=== PATIENT | female | born 1955 | race Caucasian/White ===

== ENCOUNTER 2017-06-20 08:12 | Outpatient (CLI) | payer OTHER | END 2017-06-20 08:13 | disposition home or self-care (01) | LOC: DI 08:12 | DX: I10 Essential (primary) hypertension (principal); Z82.49 Family history of ischemic heart disease and other diseases of the circulatory system | CPT/HCPCS: 93306 ==

== ENCOUNTER 2018-07-31 16:44 | Outpatient (CLI) | payer MEDICARE, OTHER ==
--- NOTE | 2018-08-01 13:10 | MRI Report ---
Reason: PAIN IN LEFT KNEE Procedure Date: 07/31/2018 Accession Number: [id number] / [id number] Procedure: MRI - Knee LT W/O CPT Code: FULL RESULT: EXAM: LEFT KNEE MRI WITHOUT CONTRAST EXAM DATE: 07/31/2018 05:34 PM. CLINICAL HISTORY: Pain in left knee. COMPARISON: Complete 06/20/2017 8:21 AM. TECHNIQUE: Multiplanar, multisequence T1-weighted and fluid-sensitive sequences of the knee without contrast. Other: None. FINDINGS: Bones: Proximal posterior tibia, 1.6 cm intraosseous ganglion cyst. Marrow edema at the posterior aspect of the medial tibial plateau. Mild edema at the anterior aspect of the lateral tibial plateau. Mild edema at the anterior medial and proximal tibia metaphysis. There are diffuse large femoral condyle and tibial plateau osteophytes. Large intercondylar osteophytes. Large lateral patella osteophyte, remotely fractured. Focal reactive marrow edema and cystic degenerative changes at the lateral patellar facet. Same level subcortical marrow edema or cystic changes at the anterior aspect of the lateral femoral condyle. Large fractured spur at the superior patella. Articular Cartilage: Severe osteoarthritis and severe chondromalacia at the lateral patellofemoral compartment with lateral patella subluxation. Severe chondromalacia at the medial tibiofemoral compartment. Medial Meniscus: Diminutive posterior horn medial meniscus. Complex tear at the medial meniscus body. Lateral Meniscus: The lateral meniscus is negative for a tear. Cruciate Ligaments: The anterior and posterior cruciate ligaments are intact. Collateral Ligaments: The medial collateral and lateral collateral ligamentous structures are intact. Tendons: The quadriceps, patellar, semimembranosus, and popliteus tendons are unremarkable. Musculature: No edema or fatty atrophy. Other: Small fluid collection in the patellar recesses. No popliteal cyst. Posterior joint space 9 mm and 5 mm osseous bodies (image 17 series 501). The medial and lateral retinacula are intact. Mild subcutaneous edema superficial to the patella. Small cyst, 9 mm, at the posterior aspect of proximal tibia. IMPRESSION: 1. Severe lateral patellofemoral compartment osteoarthritis with complete erosion of the articular cartilage, large osteophytes, some remotely fractured, and lateral patellar subluxation. 2. There is severe medial tibiofemoral compartment osteoarthritis and chondromalacia. Kellgren-Mo grade 4. 3. Diminutive posterior horn medial meniscus and the complex tear at the medial meniscus body. 4. Posterior joint space osseous bodies. RADIA MUSCULOSKELETAL RADIOLOGY SECTION
== END 2018-07-31 16:45 | disposition home or self-care (01) ==
LOC: DI 16:44
PROVIDERS: ATTEND Internal Medicine
DX: M17.12 Unilateral primary osteoarthritis, left knee (principal); S83.012A Lateral subluxation of left patella, initial encounter; M94.262 Chondromalacia, left knee; S83.232A Complex tear of medial meniscus, current injury, left knee, initial encounter; M25.762 Osteophyte, left knee

== ENCOUNTER 2019-03-13 08:00 | Outpatient (CLI) | payer MEDICARE, OTHER | END 2019-03-13 23:59 | disposition home or self-care (01) | LOC: LAB.F 08:00 | DX: Z51.81 Encounter for therapeutic drug level monitoring (principal); Z79.01 Long term (current) use of anticoagulants | CPT/HCPCS: 85610 ==

== ENCOUNTER 2019-03-16 11:51 | Outpatient (CLI) | payer MEDICARE, OTHER | END 2019-03-16 11:52 | disposition home or self-care (01) | LOC: LAB.F 11:51 | PROVIDERS: ATTEND Pharmacist Pharmacist Clinician (PhC)/ Clinical Pharmacy Specialist | DX: Z51.81 Encounter for therapeutic drug level monitoring (principal); Z79.01 Long term (current) use of anticoagulants | CPT/HCPCS: 85610 ==

== ENCOUNTER 2019-06-15 10:54 | Outpatient (CLI) | payer MEDICARE, OTHER | END 2019-06-15 10:55 | disposition home or self-care (01) | LOC: LAB 10:54 | PROVIDERS: ATTEND Pharmacist Pharmacist Clinician (PhC)/ Clinical Pharmacy Specialist | DX: Z51.81 Encounter for therapeutic drug level monitoring (principal); Z79.01 Long term (current) use of anticoagulants; Z98.890 Other specified postprocedural states | CPT/HCPCS: 85610 ==

== ENCOUNTER 2019-06-19 09:43 | Outpatient (CLI) | payer MEDICARE, OTHER | END 2019-06-19 09:44 | disposition home or self-care (01) | LOC: LAB 09:43 | PROVIDERS: ATTEND Pharmacist Pharmacist Clinician (PhC)/ Clinical Pharmacy Specialist | DX: Z79.01 Long term (current) use of anticoagulants (principal); Z98.890 Other specified postprocedural states | CPT/HCPCS: 36415; 85610 ==

== ENCOUNTER 2020-06-29 12:31 | Outpatient (CLI) | payer MEDICARE, OTHER ==
--- NOTE | 2020-06-30 14:13 | Mammography Report ---
BILATERAL DIGITAL SCREENING MAMMOGRAM 3D/2D: 06/29/2020 CLINICAL: Routine screening. Family history of breast cancer. Additional films were requested but not obtained. The tissue of both breasts is predominantly fatty. No significant masses, calcifications, or other findings are seen in either breast. IMPRESSION: NEGATIVE There is no mammographic evidence of malignancy. A 1 year screening mammogram is recommended. This exam was interpreted at Station ID: [id number]. NOTE: For mammograms, a report in lay terms will be sent to the patient. Approximately 15% of breast malignancies will not be visualized mammographically. In the management of a palpable breast mass, a negative mammogram must not discourage biopsy of a clinically suspicious lesion. Electronically Signed By: Teo Beach M.D., jr/joel:06/29/2020 14:04:35 ACR BI-RADS Category 1: Negative [id number] PARENCHYMAL PATTERN: (F) - The breast(s) demonstrate(s) diffuse fatty replacement. BI-RADS CATEGORY: (1) - 1 RECOMMENDATION: (ANNUAL) - Recommend routine annual screening mammography. [id number] 1 year screening LATERALITY: (B)
== END 2020-06-29 12:32 | disposition home or self-care (01) ==
LOC: DI 12:31
DX: Z12.31 Encounter for screening mammogram for malignant neoplasm of breast (principal); Z80.3 Family history of malignant neoplasm of breast
CPT/HCPCS: 77063; 77067

== ENCOUNTER 2020-07-12 17:09 | Outpatient (CLI) | payer MEDICARE, OTHER | END 2020-07-12 17:10 | disposition home or self-care (01) | LOC: COV 17:09 | PROVIDERS: ATTEND Family Medicine | DX: R05 Cough (principal); Z20.828 Contact with and (suspected) exposure to other viral communicable diseases; R06.02 Shortness of breath; R09.81 Nasal congestion; R53.83 Other fatigue; M79.10 Myalgia, unspecified site ==

== ENCOUNTER 2020-08-04 11:32 | Outpatient (CLI) | payer MEDICARE, OTHER ==
[2020-08-04 12:21] LABS: CALCIUM 9.1 mg/dL (8.5-10.3); CREATININE 0.5 mg/dL (0.4-1.0)
== END 2020-08-04 11:33 | disposition home or self-care (01) ==
LOC: LAB 11:32
PROVIDERS: ATTEND Physician Assistant
DX: E87.70 Fluid overload, unspecified (principal)
CPT/HCPCS: 36415; 80048; 83880

== ENCOUNTER 2020-11-09 18:27 | Emergency (ER) | payer MEDICARE, OTHER ==
[2020-11-09 18:59] LABS: BILIRUBIN,URINE NEGATIVE (NEGATIVE); GLUCOSE, URINE (UA) >=1000 mg/dL (NEGATIVE); KETONES,URINE (UA) TRACE mg/dL (NEGATIVE); LEUKOCYTE ESTERASE, URINE NEGATIVE (NEGATIVE); NITRITE,URINE NEGATIVE (NEGATIVE); OCCULT BLOOD,URINE NEGATIVE (NEGATIVE); PH,URINE 5.5 PH (5.0-7.5); PROTEIN,URINE NEGATIVE (NEGATIVE); UROBILINOGEN,URINE 0.2 (NORMAL) E.U./dL (NORMAL)
[2020-11-09 19:00] LABS: CLARITY,URINE CLEAR (CLEAR)
--- NOTE | 2020-11-09 19:05 | ED Physician Documentation ---
History of Present Illness - Stated complaint Stated Complaint: HIGH BLOOD SUGAR - Chief complaint Chief Complaint: General - History obtained from History obtained from: Patient - History of Present Illness Timing: Today Pain level max: 0 Pain level now: 0 - Additonal information Additional information: Patient states that she has a history of diabetes and on an outpatient lab draw today her blood sugar was 700. Told to come to the emergency department. She states she used to be on Metformin but stopped this several years ago. Nothing makes it better or worse. No vomiting. No abdominal pain. No fevers. No chills. Review of Systems Constitutional: denies: Fever, Chills Nose: denies: Rhinorrhea / runny nose, Congestion Throat: denies: Sore throat Respiratory: denies: Cough GI: denies: Abdominal Pain, Nausea, Vomiting, Diarrhea : denies: Dysuria Skin: denies: Rash Musculoskeletal: denies: Neck pain, Back pain Neurologic: denies: Headache PD PAST MEDICAL HISTORY - Past Medical History Past Medical History: Yes Cardiovascular: Hypertension Endocrine/Autoimmune: Type 2 diabetes - Past Surgical History Past Surgical History: No General: Gastric surgery /CINEMA OPERATOR: Hysterectomy - Present Medications Home Medications: Ambulatory Orders Medication Instructions Recorded Confirmed Calcium Carbonate [Calcium] 11/19/14 11/19/14 Cetirizine [ZyrTEC] 11/19/14 11/19/14 Cyclobenzaprine [Flexeril] 11/19/14 11/19/14 Eszopiclone 11/19/14 11/19/14 Gabapentin 300 mg PO BID 11/19/14 11/19/14 Potassium Chloride 20 meq PO DAILY 11/19/14 11/19/14 metFORMIN [Glucophage] 500 mg PO DAILY 11/19/14 11/19/14 Esomeprazole Magnesium [Nexium] 40 mg PO BID 05/04/16 05/04/16 Ferrous Sulfate 325 mg PO BID 05/04/16 05/04/16 Lisinopril/Hydrochlorothiazide 1 tab PO DAILY 05/04/16 05/04/16 [Lisinopril-Hctz 10-12.5 mg Tab] Pramipexole Di-HCl [Mirapex] 05/04/16 diltiaZEM [Cardizem] 120 mg PO DAILY 05/04/16 05/04/16 metFORMIN [Glucophage] 500 mg PO BIDWM #60 11/09/20 - Allergies Allergies/Adverse Reactions: Allergies Allergy/AdvReac Type Severity Reaction Status Date / Time latex Allergy Unknown Verified 11/09/20 18:36 codeine AdvReac Headache Verified 11/09/20 18:36 - Social History Does the pt smoke?: No Smoking Status: Never smoker Does the pt drink ETOH?: Yes Does the pt have substance abuse?: No - Immunizations Immunizations are current?: No - POLST Patient has POLST: No PD ED PE NORMAL - Vitals Vital signs reviewed: Yes - General General: Alert and oriented X 3 - HEENT HEENT: PERRL, Moist mucous membranes - Neck Neck: Supple, no meningeal sign - Cardiac Cardiac: RRR, Strong equal pulses - Respiratory Respiratory: No respiratory distress, Clear bilaterally - Abdomen Abdomen: Soft, Non tender, Non distended - Derm Derm: Warm and dry - Extremities Extremities: No edema - Neuro Neuro: Alert and oriented X 3 - Psych Psych: Normal mood, Normal affect Results - Vitals Vitals: Vital Signs - 24 hr 11/09/20 11/09/20 20:54 21:50 Heart Rate 61 60 Respiratory 18 14 Rate Blood Pressure 114/41 L 122/59 L O2 Saturation 100 100 Oxygen O2 Source Room air - Labs Labs: Laboratory Tests 11/09/20 11/09/20 11/09/20 18:45 19:05 19:05 WBC 5.7 RBC 4.31 Hgb 14.1 Hct 41.2 MCV 95.6 MCH 32.7 H MCHC 34.2 RDW 12.0 Plt Count 221 MPV 10.1 Neut # (Auto) 3.3 Lymph # (Auto) 1.9 [place] # (Auto) 0.5 Eos # (Auto) 0.1 Baso # (Auto) 0.0 Absolute Nucleated RBC 0.00 Nucleated RBC % 0.0 VBG pH VBG pCO2 VBG pO2 VBG HCO3 VBG Total CO2 VBG O2 Saturation VBG Base Excess Sodium 131 L Potassium 4.9 Chloride 93 L Carbon Dioxide 24 Anion Gap 14.0 H BUN 10 Creatinine 0.7 Estimated GFR (MDRD) 83 L Glucose 518 H* POC Whole Bld Glucose Estimat Average Glucose Hemoglobin A1c % Calcium 9.2 Total Bilirubin 1.8 H AST 44 H ALT 72 H Alkaline Phosphatase 143 H Total Protein 7.6 Albumin 4.5 Globulin 3.1 Albumin/Globulin Ratio 1.5 Lipase 40 Urine Color YELLOW Urine Clarity CLEAR Urine pH 5.5 Ur Specific [place] <=1.005 Urine Protein NEGATIVE Urine Glucose (UA) >=1000 H Urine Ketones TRACE Urine Occult Blood NEGATIVE Urine Nitrite NEGATIVE Urine Bilirubin NEGATIVE Urine Urobilinogen 0.2 (NORMAL) Ur Leukocyte Esterase NEGATIVE Ur Microscopic Review NOT INDICATED Urine Culture Comments NOT INDICATED Serum Ketones NEGATIVE 11/09/20 11/09/20 11/09/20 19:05 19:05 21:10 WBC RBC Hgb Hct MCV MCH MCHC RDW Plt Count MPV Neut # (Auto) Lymph # (Auto) [place] # (Auto) Eos # (Auto) Baso # (Auto) Absolute Nucleated RBC Nucleated RBC % VBG pH 7.387 VBG pCO2 39.6 L VBG pO2 43.1 VBG HCO3 23.3 VBG Total CO2 24.5 VBG O2 Saturation 80.2 H VBG Base Excess -1.5 Sodium Potassium Chloride Carbon Dioxide Anion Gap BUN Creatinine Estimated GFR (MDRD) Glucose POC Whole Bld Glucose 387 H Estimat Average Glucose 375 H Hemoglobin A1c % 14.7 H Calcium Total Bilirubin AST ALT Alkaline Phosphatase Total Protein Albumin Globulin Albumin/Globulin Ratio Lipase Urine Color Urine Clarity Urine pH Ur Specific [place] Urine Protein Urine Glucose (UA) Urine Ketones Urine Occult Blood Urine Nitrite Urine Bilirubin Urine Urobilinogen Ur Leukocyte Esterase Ur Microscopic Review Urine Culture Comments Serum Ketones PD MEDICAL DECISION MAKING - ED course Complexity details: reviewed results, re-evaluated patient, considered differential, d/w patient ED course: Patient with hyperglycemia. Hemoglobin A1c is consistent with a 3-month blood sugar of almost 400. Given IV fluids and insulin here. Blood sugar decreased. Will restart her on Metformin and have her follow-up with her doctor. She is not in DKA or HHONKS. Patient is well-appearing, nontoxic. Afebrile. Patient counseled regarding signs and symptoms for which I believe and urgent re- evaluation would be necessary. Patient with good understanding of and agreement to plan and is comfortable going home at this time This document was made in part using voice recognition software. While efforts are made to proofread this document, sound alike and grammatical errors may occur. Departure - Departure Disposition: 01 Home, Self Care Clinical Impression: Diabetes Qualifiers: Diabetes mellitus type: other specified (including REX) Diabetes mellitus marker machine insulin use: without fpc use Diabetes mellitus complication status: without complication Qualified Code(s): E13.9 - Other specified diabetes mellitus without complications Condition: Good Instructions: ED Hyperglycemia Diabetic Follow-Up: CHRISTEN WHITE PA [Primary Care Provider] - Within 3 Days Prescriptions: metFORMIN [Glucophage] 500 mg PO BIDWM #60 Comments: Your blood sugar has come down with insulin and fluids. We will restart you back on Metformin. You need to follow-up with your doctor later this week for f urther medication adjustments. Your average blood sugar is around 375. Your hemoglobin A1c is 14%. Drink plenty of water. Make sure you are taking the Metformin. You are diabetic. Discharge Date/Time: 11/09/20 21:51
[2020-11-09 19:10] LABS: BASOPHILS % (AUTO) 0.5 %; EOSINOPHILS # (AUTO) 0.1 10^3/uL (0.0-0.7); EOSINOPHILS % (AUTO) 1.6 %; HGB - HEMOGLOBIN 14.1 g/dL (12.0-16.0); LYMPHOCYTES # (AUTO) 1.9 10^3/uL (1.5-3.5); LYMPHOCYTES % (AUTO) 32.3 %; MEAN CORPUSCULAR HEMOGLOBIN 32.7 pg (27.0-31.0); MEAN CORPUSCULAR HGB CONC 34.2 g/dL (32.0-36.0); MEAN CORPUSCULAR VOLUME 95.6 fL (81.0-99.0); MEAN PLATELET VOLUME 10.1 fL (7.9-10.8); MONOCYTES # (AUTO) 0.5 10^3/uL (0.0-1.0); MONOCYTES % (AUTO) 7.9 %; NEUTROPHILS # (AUTO) 3.3 10^3/uL (1.5-6.6); NEUTROPHILS % (AUTO) 57.5 %; PLT - PLATELET COUNT 221 10^3/uL (130-450); RED BLOOD COUNT 4.31 10^6/uL (4.20-5.40); WHITE BLOOD COUNT 5.7 x10^3/uL (4.8-10.8)
[2020-11-09] MEDS ORDERED: SODIUM CHLORIDE 0.9% 1,000 ML IV STA (19:12)
[2020-11-09 19:21] LABS: VBG BASE EXCESS -1.5 mmol/L (-2 - +2); VBG PCO2 39.6 mmHg (41-51); VBG PH 7.387 (7.31-7.41); VBG PO2 43.1 mmHg (25-47); VBG TOTAL CO2 24.5 mmol/L (24-29)
[2020-11-09 19:22] LABS: ALBUMIN 4.5 g/dL (3.2-5.5); ALBUMIN/GLOBULIN RATIO 1.5 (1.0-2.2); ALKALINE PHOSPHATASE 143 IU/L (42-121); ALT ALANINE AMINOTRANSFERASE 72 IU/L (10-60); AST ASPARTATE AMINOTRANSFERASE 44 IU/L (10-42); BILIRUBIN,TOTAL 1.8 mg/dL (0.2-1.0); BUN - BLOOD UREA NITROGEN 10 mg/dL (6-20); CALCIUM 9.2 mg/dL (8.5-10.3); CARBON DIOXIDE - CO2 24 mmol/L (21-32); CHLORIDE 93 mmol/L (101-111); CREATININE 0.7 mg/dL (0.4-1.0); LIPASE 40 U/L (22-51); TOTAL PROTEIN 7.6 g/dL (6.7-8.2)
[2020-11-09 19:23] LABS: GLUCOSE 518 mg/dL (70-100)
[2020-11-09 19:24] LABS: KETONES, SERUM (ACETEST) NEGATIVE (NEGATIVE)
[2020-11-09] MEDS ORDERED: INSULIN REGULAR HUMAN 100 UNIT/1 ML 10 ML MDV SUBQ STA (19:25)
[2020-11-09 21:09] LABS: HEMOGLOBIN A1c% 14.7 % (4.27-6.07)
[2020-11-09 21:51] VITALS: BP 122/59
== END 2020-11-09 21:51 | disposition home or self-care (01) ==
LOC: ED 18:27
DX: E11.65 Type 2 diabetes mellitus with hyperglycemia (principal)
CPT/HCPCS: 36415; 80053; 81003; 82009; 82803; 83036; 83690; 85025; 96360; 99283; 99284; J1815; 81001; 87086

== ENCOUNTER 2021-02-17 11:16 | Outpatient (CLI) | payer MEDICARE, OTHER ==
[2021-02-17 12:25] VITALS: BP 153/71
--- NOTE | 2021-02-17 12:25 | SLEEP CARE CONSULTATION ---
Information from patient questionnaire entered by Alicia Roman. I have reviewed and concur with the information entered by Alicia Roman. This document represents the service I personally performed and the decisions made by me, Maryam Zuniga ARNP. History of Present Illness Service Date and Time: 02/17/2021 1116 Reason for Visit: New patient, Previously diagnosed sleep apnea (severe - AHI - 57.4 in 2016), sleep apnea [facility] Chief Complaint: reports: Insomnia, Snoring, Observed pauses in breathing, Frequent awakenings at night Date of Onset: 20 years plus Usual bedtime: 11 pm Time it takes to fall asleep: 20 minutes Snores at night: No Observed to quit breathing while asleep: Yes Sleeps alone due to snoring: No Number of times waking at night: 3-4 Reasons for waking at night: reports: Bathroom, Other (unknown reasons). denies : Choking, Snoring, Gasping for air Toss, Turn, or Twitch while sleeping: Yes Recalls having dreams: Yes Usually gets out of bed at: 6 am Feels refreshed in the morning: Yes (most mornings) Morning headache: No Sleepy or fatigued during the day: Yes Ever fallen asleep while driving: No Takes day naps: Yes (5 days a week; 1 hour) Dreams during day naps: No Prior sleep studies: Yes Year and Where: 2016 - [facility] Additional HPI information: MARIA EUGENIA ALATORRE was diagnosed to have severe, AHI 57.4, obstructive sleep apnea- hypopnea syndrome and comes in today to establish care. She had surgery in September and was told she stopped breathing a lot during her postoperative period. She has used a CPAP in the past but has not been using it regularly. She did not use the CPAP for a couple of years before she tried to use it again. She did try to restart the CPAP in late October and November but was unable to tolerate it very well. She states the mask blows air and increases her dry eyes (she has chronic dry eyes). Her is on a CPAP too. - Parasomnia Symptoms Ever been unable to move upon waking from sleep: No Walks in sleep: No Talks in sleep: No Ever acted out dreams in sleep: No Ever felt weak in the knees when startled or emotional: No Bothered by creepy, crawly, restless sensations in legs: Yes Problems with memory or concentration: Yes CPAP Compliance Data - Data Reviewed with Patient Average duration of nightly device use: 3 hr 40 min Compliance rate %: 13 (180 days) Current pressure setting (cmH2O): 10-17 Humidity settin Average residual AHI: 5.7 Compliance data discussion: She is using a nasal pillows mask. She gets her supplies from [facility] after [place] [facility] [place] Subjective Missed days of use due to: reports: mask issues, other (finds off of face at night, taking it off while sleeping) Patient concerns: reports: mask discomfort, air blowing in eyes. denies: aerophagia, mask leak noise, condensation in mask/hose, nasal congestion, dry mouth, nose, throat, epistaxis, other Observed to snore while using device: No (don't know) Current pressure setting perceived as: comfortable On therapy, patient: reports: sleeping better, awakening more refreshed, being more awake and alert during the day, more rested overall. denies: drowsiness while driving Initial [place] Sleepiness Scale score: 13 (in 2020) Past Medical History Past Medical History: reports: Congestive Heart Failure, Diabetes, Arthritis, Anxiety, Asthma, Depression Social History The patient's occupation is a Retired. Patient is and lives in [place]. Have you smoked in the past 12 months: No Alcohol use: Yes Alcohol amount and frequency: 2 oz 1-2 times a week Caffeine use: Yes Caffeine amount and frequency: 2 cups daily Family History Family history of sleep disordered breathing: Yes Family Hx Sleep Apnea: Mother: Snoring, Father: Snoring, Sibling: Snoring, Sleep apnea - Treated Allergies and Home Medications Drug allergies reviewed: Yes (latex, codiene) Home medication list reviewed: Yes Allergy and home medication list: Albuterol Sulfate Ambien Artificial tears ascorbic acid Atorvastatin Calcium diphenhydramine Entresto Epinephrine Escitalopram ferrous sulfate fish oil Fluticasone Glucosamine Jardiance Lantus Loratadine Melatonin Metformin Methocarbamol metoprolol succinate XL Mirapex Montelukast MVT pantoprazole prednisolone Pseudoephedrine CR Spironolactone Sumatriptan Tylenol extra strength Zyrtec Review of Systems Cardiovascular: reports: other (congestive heart failure) Gastrointestinal: reports: heartburn Urinary: reports: incontinence, urgency Neurological: reports: headaches, gait or balance problems Psychiatric: reports: depression Ear/Nose/Throat: reports: nasal congestion, wisdom teeth removed Immunologic: reports: sneezing, allergies to food or environment Physical Exam Blood Pressure: 153/71 Cuff size: wrist Heart Rate: 58 O2 Saturation: 98 Height: 5 ft 7 in Weight: 221 lb Body Mass Index: 34.6 BMI Classification: Obese Heart: regular rate and rhythm Lungs: clear bilaterally Impression and Plan 1. Obstructive Sleep Apnea-Hypopnea Syndrome, severe, with poor treatment compliance and fair apnea control with minimally elevated AHI. When she has been on CPAP therapy, the patient has felt she gets better sleep quality and is more rested overall. She would like to restart use again to try to get full benefit of her CPAP therapy. She will restart use and follow up for compliance recheck. If she is compliant we will assist with getting updated supplies from DME. She has had issue in the past with mask leaking air into her eyes. She has chronic dry eyes and this made it worse. She has to use eye drops during the night. Patient's apnea severity and rationale for treatment to reduce apnea, improve sleep quality and reduce cardiovascular and cerebrovascular events was reviewed. I also reviewed the benefit of consistent device use of CPAP for cardiac disease (CHF), diabetes, depression, and anxiety. * Continue auto CPAP pressure at 10-17 cmH2O * Notify me if snoring with mask or feeling that the pressure is too much or too little * Attempt to lose weight * Call this office if any problems using CPAP * Return for follow up in 1-2 months, or sooner if concerns arise Counseling Topics: Spare mask, Weight loss health impact Visit Type: In Office Time Spent with Patient (minutes): 32 Provider Statement: I spent 100% of the Face to Face Visit with the patient with greater than 50% spent counseling the patient and coordination of care.
== END 2021-02-17 11:17 | disposition home or self-care (01) ==
LOC: SC 11:16
PROVIDERS: ATTEND Nurse Practitioner Family
DX: G47.33 Obstructive sleep apnea (adult) (pediatric) (principal); E66.9 Obesity, unspecified; Z68.34 Body mass index [BMI] 34.0-34.9, adult
CPT/HCPCS: 99203; G0463; 99212

== ENCOUNTER 2021-05-17 13:06 | Outpatient (CLI) | payer MEDICARE, OTHER ==
--- NOTE | 2021-05-17 13:45 | SLEEP CARE CONSULTATION ---
Information from patient questionnaire entered by Alicia Roman. I have reviewed and concur with the information entered by Alicia Roman. This document represents the service I personally performed and the decisions made by , Maryam Zuniga ARNP. History of Present Illness Service Date and Time: 05/17/2021 1306 Previous diagnosis: Severe, Obstructive Sleep Apnea-Hypopnea Syndrome AHI: 57.4 (in 2015) Reason for follow up: three month Equipment type: CPAP Equipment obtained from: Other ([employer]; getting supplies as needed) Mask style: Nasal Backup mask available: Yes (other mask) Last cushion change: 1 month Prior sleep studies: Yes Year and Where: 2016 - [facility] Type of Sleep Study: Polysomnography HPI additional information: MARIA EUGENIA ALATORRE was diagnosed to have severe, AHI 57.4, obstructive sleep apnea- hypopnea syndrome and returned today for CPAP therapy three month follow-up. CPAP Compliance Data Compliance data discussion: She likes her current mask that is a nasal cushion better than the other masks she tried. She does put the mask on every night. She forgot her memory card today. Subjective Missed days of use due to: reports: travel Patient concerns: reports: air blowing in eyes (uses eye gel to moisten as needed/ chronic dry eyes ), other (headache, claustrophobia - waking frightened- couple times a week on avg). denies: aerophagia, mask discomfort, mask leak noise, condensation in mask/hose, nasal congestion, dry mouth, nose, throat, epistaxis Observed to snore while using device: No Current pressure setting perceived as: comfortable On therapy, patient: reports: sleeping better, awakening more refreshed, being more awake and alert during the day, more rested overall. denies: drowsiness while driving Initial [place] Sleepiness Scale score: 13 (in 2020) Current [place] Sleepiness Scale score: 5 Allergies and Home Medications Home medication list reviewed: Yes (no changes) Review of Systems Review of systems same as previous: Yes (no changes) Physical Exam Heart Rate: 58 O2 Saturation: 98 Height: 5 ft 7 in Weight: 218 lb Body Mass Index: 34.1 BMI Classification: Obese Impression and Plan 1. Obstructive Sleep Apnea-Hypopnea Syndrome, severe, with unknown treatment compliance and unknown apnea control. On CPAP therapy, the patient has better sleep quality and is more rested overall. Patient forgot to bring in her memory chip for us to get the download of her compliance information. She will bring it by tomorrow for me to be able to evaluate her compliance. As long as the compliance is adequate with good apnea control, patient will be good for the next year. She states she has been putting it on every night. A couple of time s a week she does have times where she wakes up, takes her mask off due to claustrophobia and anxiety. But overall she feels she is using it more because of the current nasal cushion mask is the most comfortable and less claustrophobic provoking mask she has tried. Patient's apnea severity and rationale for treatment to reduce apnea, improve sleep quality and reduce cardiovascular and cerebrovascular events was reviewed. I also reviewed the benefit of consistent device use of CPAP for cardiac disease (CHF), diabetes, and depression/anxiety. She was losing weight but it has leveled off. Patient was encouraged to lose weight by concentrating on eating nutrient dense foods as this will positively affect their overall health and to reduce apneas. * Continue auto CPAP pressure at 10-17 cmH2O * Patient is to bring in her compliance information, hopefully tomorrow. * Notify me if snoring with mask or feeling that the pressure is too much or too little * Continue to try to lose weight * Call this office if any problems using CPAP * Return for follow up in 1 year as long as her compliance information is good, or sooner if concerns arise Counseling Topics: Spare mask, Weight loss health impact Visit Type: In Office Time Spent with Patient (minutes): 21 Provider Statement: I spent 100% of the Face to Face Visit with the patient with greater than 50% spent counseling the patient and coordination of care.
== END 2021-05-17 13:07 | disposition home or self-care (01) ==
LOC: SC 13:06
PROVIDERS: ATTEND Nurse Practitioner Family
DX: G47.33 Obstructive sleep apnea (adult) (pediatric) (principal); E66.9 Obesity, unspecified; Z68.34 Body mass index [BMI] 34.0-34.9, adult
CPT/HCPCS: 99213; G0463; 99212

== ENCOUNTER 2022-01-17 09:52 | Outpatient (CLI) | payer MEDICARE, OTHER ==
--- NOTE | 2022-01-17 14:54 | XRAY Report ---
PROCEDURE: Chest 2 View X-Ray INDICATIONS: COUGH, UNSPECIFIED TECHNIQUE: 2 view(s) of the chest. COMPARISON: None. FINDINGS: Surgical changes and devices: Cholecystectomy clips. Numerous surgical clips at the distal esophageal junction. Hernia mesh projects over the anterior abdomen. Lungs and pleura: No pleural effusions or pneumothorax. Lungs are clear. Mediastinum: Mediastinal contours are normal. Heart size is normal. Bones and chest wall: No suspicious bony abnormalities. Soft tissues appear unremarkable. IMPRESSION: No acute cardiopulmonary disease process. Reviewed by: Kelli Kmi MD, PhD on 01/17/2022 2:52 PM PDT Approved by: Kelli Kim MD, PhD on 01/17/2022 2:52 PM PDT Station ID: [id number]
== END 2022-01-17 09:53 | disposition home or self-care (01) ==
LOC: DI 09:52
PROVIDERS: ATTEND Physician Assistant
DX: R05.9 Cough, unspecified (principal)

== ENCOUNTER 2022-08-04 16:49 | Outpatient (CLI) | payer MEDICARE, OTHER | END 2022-08-04 23:59 | disposition EMS.NT | LOC: EMS 16:49 | DX: Z03.89 Encounter for observation for other suspected diseases and conditions ruled out (principal) ==

== ENCOUNTER 2023-12-24 13:40 | Outpatient (CLI) | payer MEDICARE, OTHER ==
--- NOTE | 2023-12-24 16:28 | MRI Report ---
PROCEDURE: Lumbar Spine WO INDICATIONS: SPINAL STENOSIS LUMBAR TECHNIQUE: Noncontrast sagittal T1 spin echo and T2 fast echo, sagittal STIR, axial T1 and T2 fast spin echo thr ough the lumbar spine. In cases with scoliosis, additional coronal T2 fast spin echo may be performe d. COMPARISON: None. FINDINGS: Image quality: Excellent. Alignment and Curvature: Mild retrolisthesis of L3 on L4 and L4 on L5.. Mild levocurvature of the lum bar spine Bone Marrow: Status post L4-S1 posterior spinal fixation and discectomy. Marrow is of normal overall signal. No acute vertebral body compression fractures. Spinal Cord: Conus medullaris terminates at the L1 level. Visualized cord demonstrates normal signa l and size. Paraspinous Soft Tissues: Cystic lesion within the left kidney which appears mildly complex and only partially visualized measuring approximately 3 cm.. T12-L1: Disc desiccation and height loss. No central canal or neuroforaminal stenosis. L1-L2: Disc desiccation and height loss. Mild disc bulge. Facet arthropathy. No central canal or n euroforaminal stenosis. L2-L3: Disc desiccation and mild disc bulge. Facet arthropathy. No central canal stenosis. Mild bi lateral neuroforaminal stenosis. L3-L4: Disc desiccation and mild diffuse disc bulge. Facet arthropathy. Moderate central canal sten osis. Severe left and mild right neuroforaminal stenosis. L4-L5: Postoperative changes. No central canal stenosis. Moderate left and no right neuroforaminal stenosis. L5-S1: No central canal stenosis. Facet arthropathy. No significant neuroforaminal stenosis. IMPRESSION: 1.Degenerative changes of the lumbar spine status post L4-S1 posterior spinal fixation and discectomy . 2.Moderate central canal stenosis at L3-L4. 3.Severe left neuroforaminal stenosis at L3-L4. Moderate left neuroforaminal stenosis at L4-5. 4.Cystic lesion within the left kidney measuring 3 cm which may be mildly complex. Recommend ultrasou nd for further evaluation. Reviewed by: Rainer Granados MD on 12/24/2023 4:26 PM PDT Approved by: Rainer Granados MD on 12/24/2023 4:26 PM PDT Station ID: [id number]
== END 2023-12-24 13:41 | disposition home or self-care (01) ==
LOC: DI 13:40
PROVIDERS: ATTEND Orthopaedic Surgery Orthopaedic Surgery of the Spine
DX: M51.36 Other intervertebral disc degeneration, lumbar region (principal); M48.061 Spinal stenosis, lumbar region without neurogenic claudication; M47.816 Spondylosis without myelopathy or radiculopathy, lumbar region; M51.37 Other intervertebral disc degeneration, lumbosacral region; M47.817 Spondylosis without myelopathy or radiculopathy, lumbosacral region